=== PATIENT | male | born 1975 | race Caucasian/White ===

== ENCOUNTER 2018-02-10 10:24 | Emergency (ER) | payer MEDICAID, OTHER ==
[2018-02-10 10:24] VITALS: BMI 25.0
[2018-02-10 10:33] VITALS: O2SAT 98
[2018-02-10] MEDS ORDERED: Albuterol-Ipratrop 3 mg / 0.5 (3 ml) UD IH STA (10:39)
[2018-02-10] MEDS ORDERED: Albuterol-Ipratrop 3 mg / 0.5 (3 ml) UD ONE (10:54)
--- NOTE | 2018-02-10 11:02 | ED PDOC ---
HPI: General Adult Time Seen by Provider: 02/10/18 10:28 Chief Complaint (Nursing): Chest Pain Chief Complaint (Provider): Chest Pain History Per: Patient History/Exam Limitations: no limitations Onset/Duration Of Symptoms: Days (x3) Current Symptoms Are (Timing): Still Present Additional Complaint(s): 42 year old male presenting for evaluation of cough productive of green sputum x3 days. Patient denies any associated fever, but reports associated chest tightness. Patient states he was seen at [facility] 2 days ago with similar complaints. Patient further denies any leg swelling. Past Medical History Reviewed: Historical Data, Nursing Documentation, Vital Signs Vital Signs: Last Vital Signs Temp 97.9 F 02/10/18 10:32 Pulse 90 02/10/18 10:32 Resp 17 02/10/18 10:32 BP 133/89 02/10/18 10:32 Pulse Ox 98 02/10/18 10:32 - Medical History PMH: Asthma, Migraine - Family History Family History: States: Unknown Family Hx - Immunization History Hx Influenza Vaccination: No Hx Pneumococcal Vaccination: No - Home Medications Home Medications: Ambulatory Orders Medication Instructions Recorded Fluticasone/Salmeterol [Advair 1 each IH DAILY PRN 03/04/17 250-50 Diskus] Cyclobenzaprine [Flexeril] 10 mg PO TID #15 tab 01/31/18 Ibuprofen [Motrin] 600 mg PO Q6 #30 tab 01/31/18 Lidocaine 5% [Lidoderm] 1 ea TD PRN PRN #10 patch 01/31/18 Albuterol 0.083% [Albuterol 3 ml IH Q8 #1 neb 02/10/18 Sulfate 3 Ml] Albuterol HFA [Ventolin HFA 90 2 puff IH Q4H #1 puff 02/10/18 mcg/actuation (8 g)] Azithromycin [Zithromax] 250 mg PO DAILY #6 tab 02/10/18 Non-Formulary 1 ea .ROUTE Q6 #1 ea 02/10/18 Prednisone 50 mg PO DAILY #5 tab 02/10/18 - Allergies Allergies/Adverse Reactions: Allergies Allergy/AdvReac Type Severity Reaction Status Date / Time shellfish derived Allergy Verified 01/31/18 09:07 mayonnaise Allergy Uncoded 01/31/18 09:08 shrimp Allergy Uncoded 01/31/18 09:08 Review of Systems ROS Statement: Except As Marked, All Systems Reviewed And Found Negative Constitutional: Negative for: Fever Cardiovascular: Positive for: Chest Pain Respiratory: Positive for: Cough, Sputum (green) Musculoskeletal: Negative for: Leg Pain Physical Exam - Reviewed Nursing Documentation Reviewed: Yes Vital Signs Reviewed: Yes - Physical Exam Appears: Positive for: Non-toxic, No Acute Distress Head Exam: Positive for: ATRAUMATIC Skin: Positive for: Normal Color, Warm, Dry. Negative for: Rash Eye Exam: Positive for: Normal appearance, EOMI, PERRL Neck: Positive for: Normal, Painless ROM, Supple Cardiovascular/Chest: Positive for: Regular Rate, Rhythm. Negative for: Murmur Respiratory: Positive for: Normal Breath Sounds. Negative for: Respiratory D istress Gastrointestinal/Abdominal: Positive for: Normal Exam, Soft. Negative for: Tenderness Back: Positive for: Normal Inspection. Negative for: L CVA Tenderness, R CVA Tenderness, Vertebral Tenderness Extremity: Positive for: Normal ROM. Negative for: Deformity Neurologic/Psych: Positive for: Alert, Oriented. Negative for: Motor/Sensory Deficits - Laboratory Results Result Diagrams: 02/10/18 10:58 02/10/18 10:58 - ECG O2 Sat by Pulse Oximetry: 98 (RA) Pulse Ox Interpretation: Normal Medical Decision Making Medical Decision Makin Impression: R/o influenza, r/o pneumonia Plan: -CMP -CBC -D Dimer -CXR -Duoneb 3mL IH -PEFR pre/post-tx -Reevaluation Scribe Attestation: Documented by Billy Zavala, acting as a scribe for Juan Alberto Friedman MD. Provider Scribe Attestation: All medical record entries made by the Scribe were at my direction and personally dictated by me. I have reviewed the chart and agree that the record accurately reflects my personal performance of the history, physical exam, medical decision making, and the department course for this patient. I have also personally directed, reviewed, and agree with the discharge instructions and disposition. Disposition - Clinical Impression Clinical Impression: Bronchitis - Patient ED Disposition Is Patient to be Admitted: No Counseled Patient/Family Regarding: Studies Performed, Diagnosis, Need For Followup, Rx Given - Disposition Referrals: [facility] [Outside] Disposition: Routine/Home Disposition Time: 13:39 Condition: FAIR Prescriptions: Albuterol 0.083% [Albuterol Sulfate 3 Ml] 3 ml IH Q8 #1 neb Albuterol HFA [Ventolin HFA 90 mcg/actuation (8 g)] 2 puff IH Q4H #1 puff Azithromycin [Zithromax] 250 mg PO DAILY #6 tab Non-Formulary 1 ea .ROUTE Q6 #1 ea Prednisone 50 mg PO DAILY #5 tab Instructions: Acute Bronchitis Forms: [employer] (Romanian)
[2018-02-10 11:06] LABS: BASO % 0.3 % (0.0-2.0); EOS # 0.1 K/uL (0.0-0.7); EOS % 1.2 % (0.0-4.0); HEMOGLOBIN 14.2 g/dL (12.0-18.0); LYMPH # 1.9 K/uL (1.0-4.3); LYMPH % 23.6 % (20.0-40.0); MEAN CELL VOLUME 95.5 fl (80.0-94.0); MEAN CORPUSCULAR HEMOGLOBIN 31.9 pg (27.0-31.0); MEAN CORPUSCULAR HGB CONC 33.4 g/dL (33.0-37.0); MEAN PLATELET VOLUME 8.3 fl (7.2-11.7); MONO # 0.4 K/uL (0.0-0.8); MONO % 5.5 % (0.0-10.0); NEUT # 5.5 K/uL (1.8-7.0); NEUT % 69.4 % (50.0-75.0); NRBC % 0.2 % (0.0-0.0); RBC 4.46 Mil/uL (4.40-5.90); RED CELL DISTRIBUTION WIDTH 12.5 % (11.5-14.5); WHITE BLOOD COUNT 7.9 K/uL (4.8-10.8)
[2018-02-10 11:24] LABS: ALB/GLOB RATIO 1.4 (1.0-2.1); ALBUMIN 4.6 g/dL (3.5-5.0); ALT/SGPT 35 U/L (21-72); AST/SGOT 31 U/L (17-59); BLOOD UREA NITROGEN 15 mg/dl (9-20); CALCIUM 9.5 mg/dL (8.4-10.2); GFR NON-AFRICAN AMERICAN > 60
--- NOTE | 2018-02-10 11:27 | RAD ---
Date of service: 02/10/2018 HISTORY: SOB, cough COMPARISON: 01/10/2013 image only. Report not now available TECHNIQUE: Chest PA and lateral FINDINGS: LUNGS: No active pulmonary disease. PLEURA: No significant pleural effusion identified. Possible trace biapical pleural thickening present. No pneumothorax apparent. CARDIOVASCULAR: No aortic atherosclerotic calcification present. Normal cardiac size. No pulmonary vascular congestion. OSSEOUS STRUCTURES: Minimal bilateral acromioclavicular joint arthrosis. VISUALIZED UPPER ABDOMEN: Normal. OTHER FINDINGS: None. IMPRESSION: No acute cardiopulmonary pathology seen. Possible trace biapical pleural thickening-possibly chronic
[2018-02-10 14:24] VITALS: BP 120/78; PULSE 78; RESP 19; TEMP 97
== END 2018-02-10 14:25 | disposition home or self-care (01) ==
LOC: H.ER 10:24
DX: J40 Bronchitis, not specified as acute or chronic (principal)

== ENCOUNTER 2018-04-23 14:42 | Emergency (ER) | payer MEDICAID ==
[2018-04-23 14:43] VITALS: BMI 25.0
[2018-04-23 14:48] VITALS: BP 140/79; PULSE 86; RESP 18; TEMP 99.6; O2SAT 100
--- NOTE | 2018-04-23 15:11 | ED PDOC ---
HPI: General Adult Time Seen by Provider: 04/23/18 14:53 Chief Complaint (Nursing): Abnormal Skin Integrity Chief Complaint (Provider): Rash History Per: Patient History/Exam Limitations: no limitations Onset/Duration Of Symptoms: Other (x1 week) Current Symptoms Are (Timing): Still Present Additional Complaint(s): 42 year old male presents to the ED with a pruritic rash on the body and legs for the past week. Patient denies taking any medications to resolve symptoms. Patient reports having an asthma attack with coughing which developed this morning. 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 Of note, patient states, when he was 11 years old, he was intubated due to his asthma. He states he is currently without shortness of breath or wheezing. Denies fever, chest pain, chills, sore throat, antipyretic use, or hemoptysis. PMD: none provided Past Medical History Reviewed: Historical Data, Nursing Documentation, Vital Signs Vital Signs: Last Vital Signs Temp 99.6 F 04/23/18 14:45 Pulse 86 04/23/18 14:45 Resp 18 04/23/18 14:45 BP 140/79 04/23/18 14:45 Pulse Ox 100 04/23/18 14:45 - Medical History PMH: Asthma, Migraine - Surgical History Surgical History: No Surg Hx - Family History Family History: States: Unknown Family Hx - Immunization History Hx Influenza Vaccination: No Hx Pneumococcal Vaccination: No - Home Medications Home Medications: Ambulatory Orders Medication Instructions Recorded Fluticasone/Salmeterol [Advair 1 each IH DAILY PRN 03/04/17 250-50 Diskus] Cyclobenzaprine [Flexeril] 10 mg PO TID #15 tab 01/31/18 Ibuprofen [Motrin] 600 mg PO Q6 #30 tab 01/31/18 Lidocaine 5% [Lidoderm] 1 ea TD PRN PRN #10 patch 01/31/18 Albuterol 0.083% [Albuterol 3 ml IH Q8 #1 neb 02/10/18 Sulfate 3 Ml] Albuterol HFA [Ventolin HFA 90 2 puff IH Q4H #1 puff 02/10/18 mcg/actuation (8 g)] Azithromycin [Zithromax] 250 mg PO DAILY #6 tab 02/10/18 Non-Formulary 1 ea .ROUTE Q6 #1 ea 02/10/18 Prednisone 50 mg PO DAILY #5 tab 02/10/18 Methylprednisolone [Medrol Dose 4 mg PO DAILY #21 mg 04/23/18 Pack (21 tabs)] Triamcinolone 0.1% [Triamcinolone 1 appl TP BID #30 g 04/23/18 0.1% Cream] - Allergies Allergies/Adverse Reactions: Allergies Allergy/AdvReac Type Severity Reaction Status Date / Time shellfish derived Allergy RASH Verified 04/23/18 14:45 mayonnaise Allergy RASH Uncoded 04/23/18 14:45 shrimp Allergy RASH Uncoded 04/23/18 14:45 Review of Systems ROS Statement: Except As Marked, All Systems Reviewed And Found Negative Constitutional: Negative for: Fever, Chills ENT: Negative for: Throat Pain Cardiovascular: Negative for: Chest Pain Respiratory: Negative for: Cough, Hemoptysis, Wheezing Skin: Positive for: Rash Physical Exam - Reviewed Nursing Documentation Reviewed: Yes Vital Signs Reviewed: Yes - Physical Exam Appears: Positive for: No Acute Distress Skin: Positive for: Rash (Scattered erythematous maculopapular rash without vesicles, pustules, urticaria or blanching to the bilateral axillary chest going down into the pelvic area (U-shaped). Scattered erythematous papules on bilateral lower extremities, no vesicles, pustules, break in skin integrity, urticaria. ) ENT: Positive for: Normal ENT Inspection Cardiovascular/Chest: Positive for: Regular Rate, Rhythm Respiratory: Positive for: Normal Breath Sounds. Negative for: Wheezing, Resp iratory Distress Neurologic/Psych: Positive for: Alert, Oriented, Other (Speaking full sentences) - ECG O2 Sat by Pulse Oximetry: 100 (RA) Pulse Ox Interpretation: Normal Medical Decision Making Medical Decision Making: Initial Impression: Rash Initial Plan: --Benadryl 50mg PO Patient advised to follow up with [facility] for allergy testing and to return to the ED if symptoms do not improve. Patient verbalized correct understanding of follow up and care. Scribe Attestation: Documented by Jhonny Rausch acting as a scribe for Michael EDWARDS Provider Scribe Attestation: All medical record entries made by the Scribe were at my direction and personally dictated by me. I have reviewed the chart and agree that the record accurately reflects my personal performance of the history, physical exam, medical decision making, and the department course for this patient. I have also personally directed, reviewed, and agree with the discharge instructions and disposition. Disposition - Clinical Impression Clinical Impression: Contact dermatitis, Asthma - Patient ED Disposition Is Patient to be Admitted: No - Disposition Referrals: [facility] [Outside] [facility] [Outside] Disposition: Routine/Home Disposition Time: 15:09 Condition: STABLE Additional Instructions: FOLLOW UP WITH [facility] FOR FURTHER EVALUATION RETURN TO ED IMMEDIATELY IF SYMPTOMS WORSEN USE BENADRYL TO HELP WITH ITCHING BUT BE CAREFUL IT CAN CAUSE DROWSINESS JOSÉ LUIS MALDONADO, thank you for letting us take care of you today. Your provider was Juan Alberto Friedman MD and you were treated for RASH. The emergency medical care you received today was directed at your acute symptoms. If you were prescribed any medication, please fill it and take as directed. It may take several days for your symptoms to resolve. Return to the Emergency Department if your symptoms worsen, do not improve, or if you have any other problems. Please contact your doctor or call one of the physicians/clinics you have been referred to that are listed on the Patient Visit Information form that is included in your discharge packet. Bring any paperwork you were given at discharge with you along with any medications you are taking to your follow up visit. Our treatment cannot replace ongoing medical care by a primary care provider outside of the emergency department. Thank you for allowing the [facility] team to be part of your care today. If you had an X-Ray or CT scan: A Radiologist will review the ED reading if any change in treatment is needed we will contact you. If you had a blood, urine, or wound culture: It will take several days for the results, if any change in treatment is needed we will contact you. If you had an STI test: It will take 48 hours for the results. Please call after 1 week if you have not heard back. Prescriptions: Methylprednisolone [Medrol Dose Pack (21 tabs)] 4 mg PO DAILY #21 mg Triamcinolone 0.1% [Triamcinolone 0.1% Cream] 1 appl TP BID #30 g Instructions: Asthma, Adult (DC), Contact Dermatitis (DC) Forms: [employer] (Nepali)
== END 2018-04-23 15:40 | disposition home or self-care (01) ==
LOC: H.ER 14:42
DX: L25.9 Unspecified contact dermatitis, unspecified cause (principal)